=== PATIENT | female | born 2005 | race Caucasian/White ===

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

== ENCOUNTER 2023-02-06 08:45 | Inpatient (IN) | payer BC, MEDICAID ==
[2023-02-06] MEDS ORDERED: Acetaminophen 325 MG Tab PO PRN (16:46)
[2023-02-06] MEDS ORDERED: Nalbuphine 10 MG/0.5 ML Syringe IVPUSH PRN (16:46)
[2023-02-06] MEDS ORDERED: Calcium Carbonate 500 MG Tab.Chew PO PRN (16:46)
[2023-02-06] MEDS ORDERED: Ondansetron 4 MG/2 ML SDV IVPUSH PRN (16:46)
[2023-02-06] MEDS ORDERED: Lidocaine 1% 50 ML MDV INJECT ONE (16:50)
[2023-02-06] MEDS ORDERED: Oxytocin/Lactated Ringers 10 UNIT/1,000 ML BAG IV SCH ×2 (17:00)
[2023-02-06 17:12] LABS: BASOPHILS ABSOLUTE AUTO 0.02 K/mm3 (0.01-0.08); BASOPHILS PERCENT AUTO 0.2 % (0.1-1.2); EOSINOPHILS ABSOLUTE AUTO 0.18 K/mm3 (0.04-0.36); HEMATOCRIT 38.1 % (34.1-44.9); HEMOGLOBIN 12.5 gm/dl (11.2-15.7); IMMATURE GRAN ABSOLUTE AUTO 0.02 K/mm3 (0.00-0.10); IMMATURE GRAN PERCENT AUTO 0.2 % (<=1.0); LYMPHOCYTES ABSOLUTE AUTO 1.28 K/mm3 (1.18-3.74); LYMPHOCYTES PERCENT AUTO 13.9 % (19.3-51.7); MEAN CORPUSCULAR HEMOGLOBIN 30.3 pg (25.6-32.2); MEAN CORPUSCULAR HGB CONC 32.8 g/dl (32.2-35.5); MEAN CORPUSCULAR VOLUME 92.5 fl (79.4-94.8); MEAN PLATELET VOLUME 10.6 fl (9.4-12.3); MONOCYTES ABSOLUTE AUTO 0.68 K/mm3 (0.24-0.36); MONOCYTES PERCENT AUTO 7.4 % (4.7-12.5); NEUTROPHILS ABSOLUTE AUTO 7.02 K/mm3 (1.56-6.13); NEUTROPHILS PERCENT AUTO 76.3 % (34.0-71.1); PLATELET COUNT,PLT 195 K/mm3 (182-369); RED BLOOD CELL COUNT 4.12 M/mm3 (3.98-5.22)
[2023-02-06] MEDS: Lactated Ringers 1,000 ML IV SCH ×2 (18:39→23:21)
[2023-02-06] MEDS ORDERED: ePHEDrine 50 MG/ML SDV IVPUSH PRN (21:29)
[2023-02-06] MEDS ORDERED: diphenhydrAMINE 50 MG/ML SDV IVPUSH PRN (21:29)
[2023-02-06] MEDS ORDERED: fentaNYL 100 MCG/2 ML SDV EPIDUR PRN (21:29)
[2023-02-06] MEDS: Bupivacaine/fentaNYL/NS 100 ML Bag EPIDUR PRN (23:07)
[2023-02-07] MEDS ORDERED: Lidocaine 1% 10 ML MDV ONE
[2023-02-07] MEDS: Lactated Ringers 1,000 ML IV SCH (04:40)
[2023-02-07] MEDS: Bupivacaine/fentaNYL/NS 100 ML Bag EPIDUR PRN (05:20)
[2023-02-07] MEDS ORDERED: Benzocaine/Menthol 20%-0.5% Spray 78 GM Cannister TOP PRN (10:04)
[2023-02-07] MEDS ORDERED: Witch Hazel Medicated Pads 40/Jar TOP PRN (10:04)
[2023-02-08] MEDS: Ibuprofen 600 MG Tab PO PRN ×3 (00:19→18:23)
== END 2023-02-09 12:10 | disposition home or self-care (01) | DRG 560 ==
LOC: JD.OB 08:45 → OBSVTOIN 02-07 08:45 → JD.OB 02-07 08:46
PROVIDERS: ADMIT Obstetrics & Gynecology; ATTEND Obstetrics & Gynecology
PROC: 10E0XZZ Delivery of Products of Conception, External Approach (ICD-10-PCS; principal; 2023-02-07)
PROC: 0KQM0ZZ Repair Perineum Muscle, Open Approach (ICD-10-PCS; 2023-02-07)
PROC: 0UQMXZZ Repair Vulva, External Approach (ICD-10-PCS; 2023-02-07)
PROC: 3E0R3BZ Introduction of Anesthetic Agent into Spinal Canal, Percutaneous Approach (ICD-10-PCS; 2023-02-07)
PROC: 00HU33Z Insertion of Infusion Device into Spinal Canal, Percutaneous Approach (ICD-10-PCS; 2023-02-07)
DX: O48.0 Post-term pregnancy (principal); O42.02 Full-term premature rupture of membranes, onset of labor within 24 hours of rupture; Z37.0 Single live birth; O99.344 Other mental disorders complicating childbirth; F32.A Depression, unspecified; F41.9 Anxiety disorder, unspecified; O70.1 Second degree perineal laceration during delivery; O99.52 Diseases of the respiratory system complicating childbirth; J45.909 Unspecified asthma, uncomplicated; Z87.891 Personal history of nicotine dependence; Z3A.40 40 weeks gestation of pregnancy; Z79.899 Other long term (current) drug therapy
CPT/HCPCS: 01967; 36415; 51702; 59025; 59409; 85025; 86592; 86850; 86900; 86901; A9270-GY; J2405; J2590; J3010; J3490; J7120